=== PATIENT | male | born 2000 | race African-American/Black ===

== ENCOUNTER 2018-02-15 15:14 | Emergency (ER) | payer BC ==
[~2018-02-15] VITALS: Ht 175.3 cm; Wt 95.5 kg
[~2018-02-15 15:14] MED LIST: ACETAMINOPHEN W1 TA6 PO; AMOXICILLIN/CLA1 TA1 PO; ATARAX50 MG PO; AVEED IM; CATAPRES 0.1MG0.1 MG PO; CLARITIN 1010 MG/TAB PO; DEPAKOTE; FLOVENT 110MCG7.9 GM INH; FLOVENT 44MCG I13 GM IH; GENOTROPIN SQ; HYDROXYZINE HCL25 MG PO; INTUNIV2 MG PO; NO HOME MEDICATIONS; NORCO 325 MG-51 TAB PO; PRELONE15 MG/5 ML PO; SINGULAIR 5M5 MG/TAB PO; TYLENOL W/COD1 UDTAB PO; VENTOLIN0.09 MG IH; VICODIN 5/5001 UDTAB PO; VYVANSE60 MG PO; ZOLOFT 100MG100 MG PO; ZOLOFT25 MG PO
[2018-02-15 15:20] VITALS: BP 123/71; TEMP 99.2
[2018-02-15 15:56] VITALS: PULSE 68
== END 2018-02-15 15:58 | disposition home or self-care (01) ==
LOC: COL.ER 15:14
DX: S90.425A Blister (nonthermal), left lesser toe(s), initial encounter (principal); S90.424A Blister (nonthermal), right lesser toe(s), initial encounter; F17.290 Nicotine dependence, other tobacco product, uncomplicated; X58.XXXA Exposure to other specified factors, initial encounter